=== PATIENT | male | born 1970 | race Caucasian/White ===

== ENCOUNTER 2021-06-25 06:56 | Day surgery (SDC) | payer OTHER ==
[2021-06-21 15:44] VITALS: BMI 23.1
[2021-06-25] MEDS ORDERED: BUPIVACAINE HCL/PF 2.5 MG/ML - 30 ML VIAL IJ ONE (08:43)
[2021-06-25] MEDS ORDERED: PROPOFOL 20 ML ONE ×2 (08:44)
[2021-06-25] MEDS ORDERED: PROMETHAZINE HCL 25 MG/1 ML VIAL IVPUSH PRN (10:05)
[2021-06-25] MEDS ORDERED: ONDANSETRON 4 MG/2 ML VIAL IVPUSH PRN (10:05)
[2021-06-25] MEDS ORDERED: oxyCODONE HCL 5 MG TABLET PO PRN ×2 (10:05)
[2021-06-25 11:28] VITALS: BP 124/70; PULSE 66; TEMP 97.9
== END 2021-06-25 11:29 | disposition home or self-care (01) ==
LOC: FASU 06:56
PROVIDERS: ATTEND Orthopaedic Surgery
PROC: 0SBD4ZZ Excision of Left Knee Joint, Percutaneous Endoscopic Approach (ICD-10-PCS; 2021-06-25)
PROC: 0SBD4ZZ Excision of Left Knee Joint, Percutaneous Endoscopic Approach (ICD-10-PCS; principal; 2021-06-25 09:35)
DX: S83.242A Other tear of medial meniscus, current injury, left knee, initial encounter (principal); S83.282A Other tear of lateral meniscus, current injury, left knee, initial encounter; S83.8X2A Sprain of other specified parts of left knee, initial encounter; M65.862 Other synovitis and tenosynovitis, left lower leg; X58.XXXA Exposure to other specified factors, initial encounter; Y93.9 Activity, unspecified; Y92.9 Unspecified place or not applicable
CPT/HCPCS: 94760